=== PATIENT | male | born 1950 | race Caucasian/White ===

== ENCOUNTER 2016-04-26 13:20 | Observation (INO) | payer MEDICARE, BC ==
[2016-04-25 15:04] LABS: BASOPHILS 0.2 %; BASOPHILS ABSOLUTE 0.02 10/3/uL (0.0-0.16); EOSINOPHILS 3.3 %; EOSINOPHILS ABSOLUTE 0.32 10/3/uL (0.0-0.53); HEMATOCRIT 41.4 % (40.0-51.0); HEMOGLOBIN 14.2 g/dL (13.6-17.8); IMMATURE GRANULOCYTES 0.3 %; IMMATURE GRANULOCYTES ABSOLUTE 0.03 10/3/uL (0.0-0.11); LYMPHOCYTES 26.5 %; LYMPHOCYTES ABSOLUTE 2.57 10/3/uL (0.67-4.30); MEAN CORPUS HGB CONC 34.3 g/dL (32.0-36.0); MEAN CORPUSCULAR HEMOGLOB 30.8 pg (26.0-34.0); MEAN CORPUSCULAR VOLUME 89.8 fL (80-100); MEAN PLATELET VOLUME 10.6 fL (9.2-13.0); MONOCYTES 5.5 %; MONOCYTES ABSOLUTE 0.53 10/3/uL (0.21-1.20); NEUTROPHILS 64.2 %; NEUTROPHILS ABSOLUTE 6.23 10/3/uL (2.02-8.40); PLATELET COUNT 249 10/3/uL (150-400); RBC DISTRIBUTION WIDTH 12.2 % (12.0-16.0); RED CELL COUNT 4.61 10/6/uL (4.7-6.1); WHITE BLOOD CELLS 9.7 10/3/uL (4.5-10.5)
[2016-04-25 15:09] LABS: MANUAL DIFF NO %
[2016-04-25 15:45] LABS: ALBUMIN 3.8 G/DL (3.5-5.0); ALKALINE PHOSPHATASE 40 U/L (45-117); CALCIUM, SERUM 9.3 MG/DL (8.5-10.4); CHLORIDE, SERUM 102 MMOL/L (96-112); CO2 (CARBON DIOXIDE) 26 MMOL/L (24-34); CREATININE 0.96 MG/DL (0.70-1.30); GFR AFRICAN AMERICAN 96 ML/MIN (>=60); GFR NON AFRICAN AMERICAN 83 ML/MIN (>=60); GLOBULIN 3.7 G/DL (2.5-4.1); GLUCOSE, SERUM 132 MG/DL (60-99); POTASSIUM, SERUM 4.8 MMOL/L (3.5-5.3); SGOT(AST) 26 U/L (5-40); SGPT(ALT) 27 U/L (5-65); SODIUM, SERUM 139 MMOL/L (135-148); TOTAL BILIRUBIN 0.8 MG/DL (0-1.2); TOTAL PROTEIN 7.5 G/DL (6.0-8.5)
[2016-04-25 15:46] LABS: BUN (BLOOD UREA NITROGEN) 17 MG/DL (6-23)
--- NOTE | ~2016-04-26 | OP ---
Record Of Operation [facility] [address] [place]. [address] NAME: RADHA FAJARDO : 50 [place]US : [place] [facility] [place] [id number] AGE: 65 ADM/REG DATE : 04/26/16 MR#: [id number] REPORT SERV DATE: 04/26/16 DICTATED BY: BRANDON COOPER III DATE: 04/26/16 REPORT STATUS : Draft TRANSCRIBED BY: MODL DATE: 04/26/16 DATE OF PROCEDURE: 04/26/2016 PREOPERATIVE DIAGNOSIS: Acute ruptured right quadriceps tendon. POSTOPERATIVE DIAGNOSIS: Acute ruptured right quadriceps tendon. SURGICAL PROCEDURE PERFORMED: 1. Open repair of acute ruptured right quadriceps tendon using the Arthrex 5.0 metal suture anchors x3. 2. Repair of medial and lateral retinaculum. SURGEON: Brandon Cooper M.D. TANK OFFICER: Dixon Boyd. ANESTHESIA: General. ANTIBIOTICS: Ancef 2 g. COMPLICATIONS: None. TOURNIQUET TIME: 31 minutes. DRAINS: None. ESTIMATED BLOOD LOSS: 30-50 mL. PROCEDURE IN DETAIL: The patient was brought to the operating room and placed on the table in supine position and general anesthesia was induced. Ancef 2 g was administered intravenously in the operating room. A pneumonic tourniquet was applied to right upper thigh. Right lower extremity was prepped and draped in the usual sterile fashion. It was exsanguinated with a 6-inch Esmarch. Tourniquet was inflated to 350 mmHg. Assuring good anesthesia, a longitudinal incision was made just above the patella for approximately 4 inches. The subcutaneous tissue was incised, immediately obvious was a complete rupture of the quadriceps tendon. Hemarthrosis was suctioned from the knee. The medial and lateral retinaculum were torn as well. At this point, #15 blade was used to dissect the superior pole medially, centrally, and laterally. A 3.5 drill bit was used to place three holes in the superior pole of the patella, one in the superior medial side, one centrally and one in the superolateral side. Three metal corkscrew 5.0 Arthrex suture anchors were placed in these holes, again one centrally, one medially, and one more laterally in the superior pole. These were then sutured and weaved through the torn quadriceps tendon and tied, snugly pulling the tendon back down to the bone. These sutures were then weaved in a baseball-type stitch, more proximally in the quadriceps tendon for added support. At this point, a #2 FiberWire was used to repair the medial retinaculum placing two [id number] sutures in similar fashion. #2 FiberWire was used to repair the lateral retinaculum placing two figure Record Of Operation [place] [id number] [facility] [place]. [address] NAME: RADHA FAJARDO : 50 STATUS : [place] [facility] [place]#: [id number] AGE: 65 ADM/REG DATE : 04/26/16 MR#: [id number] REPORT SERV DATE: 04/26/16 DICTATED BY: BRANDON COOPER III DATE: 04/26/16 REPORT STATUS : Draft TRANSCRIBED BY: RADHA DATE: 04/26/16 of-eight sutures. The central portion of the tendon was oversewn with #2 FiberWire as well making a nice secure repair. The knee was then flexed in 90 degrees with minimal stress on the repair. The tourniquet was then released after 31 minutes. Thorough irrigation was carried out. Subcutaneous tissue was closed with 2-0 Vicryl. Skin was closed using running 4-0 Monocryl. Benzoin and Steri-Strips were applied, followed by an Aquacel dressing. A DonJoy brace was applied 0-45 degrees. The patient will be 50% weightbearing postoperatively. The patient tolerated the procedure well, brought to recovery room in satisfactory condition. There were no intraoperative, postoperative, or anesthetic complications. All instrument, needle, sponge, and lap counts were correct. JUAN ANTONIO/RADHA Brandon Cooper III, M.D. / [id number] CC: Shabana Zhao III, M.D.
[~2016-04-26 13:20] MED LIST: ALLEGRA180 PO; AMARYL2 PO; AMARYL4 PO; ASAB PO; CELEXA20 PO; COREG12 PO; COZAAR100 MG PO; GLUCPH PO; JANUVIA100 MG PO; L40 PO; MCZ125 PO; NEUR300 PO; PREV30 PO; PRILOSEC40 MG PO; SPIRO25 PO; SYN.025B PO; TOPXL50 PO; TOUJEO SQ; VALTURN1 PO; VYTORIN 10/40 T1 TAB PO; X5 PO
[2016-04-27 07:10] LABS: HEMOGLOBIN 13.1 g/dL (13.6-17.8)
[2016-04-27] MEDS ORDERED: PERCOCET1 TA4 (09:52)
== END 2016-04-27 15:23 | disposition home or self-care (01) ==
LOC: SDC 13:20 → 5SO 21:28
PROVIDERS: Orthopaedic Surgery
PROC: 0LQN0ZZ Repair Right Lower Leg Tendon, Open Approach (ICD-10-PCS; principal; 2016-04-26 14:45)
DX: S76.111A Strain of right quadriceps muscle, fascia and tendon, initial encounter (principal); I10 Essential (primary) hypertension; E11.9 Type 2 diabetes mellitus without complications; I25.10 Atherosclerotic heart disease of native coronary artery without angina pectoris; Z95.5 Presence of coronary angioplasty implant and graft; Z79.82 Long term (current) use of aspirin; Z79.4 Long term (current) use of insulin
CPT/HCPCS: 27430; 71020; 80053; 82962 ×2; 85014; 85018; 85025; 93005; 96374; 96376; 97161; A9270 ×15; C1713; G0378; G8978; G8979; G8980; J0690 ×2; J2250; J2270 ×2; J2370; J2405; J2710; J2795; J3010